=== PATIENT | female | born 1965 | race Caucasian/White ===

== ENCOUNTER → 2018-12-14 | Outpatient (REF) | payer OTHER | LOC: M SFHCPLAZ 09:47 | PROVIDERS: ATTEND Dermatology | DX: L98.6 Other infiltrative disorders of the skin and subcutaneous tissue (principal) ==

== ENCOUNTER → 2020-12-04 | Outpatient (REF) | payer OTHER | LOC: M LAB REF 18:16 | PROVIDERS: ATTEND Physician Assistant | DX: L40.8 Other psoriasis (principal) ==